=== PATIENT | male | born 1975 | race African-American/Black ===

== ENCOUNTER 2016-09-04 03:58 | Inpatient (IN) | payer OTHER ==
[~2016-09-04] VITALS: Ht 180.3 cm; Wt 89.1 kg
[~2016-09-04 03:58] MED LIST: ALPHAGAN 0100 DROP/5 BOTH EYES; AMLODIPINE BESY10 MG PO; AMLODIPINE BESYL5 MG PO; ASPIR 8181 M1 PO; ASPIRIN81 M1 PO; AUGMENTIN875 MG PO; CARBAMAZEPINE400 MG PO; CLEOCIN300 MG PO; CLINDAMYCIN HC300 MG PO; COSOPT EYE DROPS5 ML BOTH EYES; DOLOPHINE HCL5 MG PO; DOXYCYCLINE HY100 M3 PO; GLUCOPHAGE1000 MG PO; HUMALOG100 UNIT/1 SC; HUMULIN 70100 UNIT/1 SC; HYDROCHLOROTHIA25 MG PO; INDOCIN25 MG PO; KEPPRA XR500 MG PO; KEPPRA500 MG PO; KEPPRA750 MG PO; LANTUS 3 M100 UNITS1 SC; LEVEMIR FL100 UNIT/1 SC; LEVETIRACETAM500 MG PO; LEVETIRACETAM750 MG PO; LEXAPRO20 MG PO; LIPITOR10 MG PO; LIPITOR5 MG PO; LISINOPRIL20 MG PO; LISINOPRIL5 MG PO; LUMIGAN 0.50 DROP/2. OP; LYRICA150 MG PO; LYRICA200 MG PO; LYRICA50 MG PO; Lipitor PO; METFORMIN HCL500 MG PO; METHADONE10 MG PO; NORVASC10 MG PO; NOVOLIN 70100 UNIT/1 SQ; NOVOLIN,HU100 UNITS/ SC; NOVOLOG MI100 UNIT/3 SQ; NOVOLOG MI100 UNIT/4 SC; NOVOLOG PE100 UNITS/ SC; NOVOLOG100 UNIT/2 SQ; OPANA ER10 MG PO; OXYCODONE HCL10 MG PO; PERCOCET 5/31 TABLET PO; POLYTRIM EYE DR10 ML BOTH EYES; ROWEEPRA500 MG PO; TEGRETOL-XR,CA200 MG PO; TEGRETOL-XR,CA400 MG PO; TORADOL10 MG PO; TRAMADOL HCL50 MG PO; VALIUM2 MG PO; VIMPAT100 MG PO; ZESTRIL,PRINIVI10 MG PO; ZESTRIL10 MG PO; ZONEGRAN100 MG PO; ZONISAMIDE100 MG PO
[2016-09-04 04:41] LABS: POINT-OF-CARE METER ID UU14100415
[2016-09-04 05:06] LABS: HEMATOCRIT 35.6 % (38.0-50.0); MCH 29.4 PG (29.0-34.0); MCHC 36.8 G/DL (30.0-36.0); MCV 79.8 FL (86-99); MEAN PLAT.VOLUME 12.1 uM^3 (9.0-12.4); PLATELET COUNT 204 K/uL (156-360); RBC DIS.WIDTH-CV 13.3 % (11.8-14.6); RBC DIS.WIDTH-SD 38.7 % (39-53); RED BLOOD COUNT 4.46 M/uL (4.00-5.50); WHITE BLOOD COUNT 6.1 K/uL (4.1-10.2)
[2016-09-04 05:10] LABS: CHLORIDE 104 mEq/L (99-109); POTASSIUM 4.3 mEq/L (3.7-5.4); SODIUM 137 mEq/L (136-147)
[2016-09-04 05:12] LABS: GLUCOSE 321 mg/dL (70-99)
[2016-09-04 05:13] LABS: ANION GAP 6 MEQ/L (2-14)
[2016-09-04 05:14] LABS: TOTAL BILIRUBIN 0.2 mg/dL (0.0-1.0)
[2016-09-04 05:16] LABS: ALKALINE PHOSPHATASE 104 IU/L (3-129); GFR ESTIMATE (CALCULATED) > 59 mL/min/
[2016-09-04 05:17] LABS: UREA NITROGEN (BUN) 19 mg/dL (9-23)
[2016-09-04 05:19] LABS: CREATINE KINASE 181 IU/L (1-294); LIPASE 56 U/L (1.0-51.0); TOTAL CK 181 IU/L (1-294)
[2016-09-04 05:21] LABS: TROP-I INTERPRETATION NEGATIVE; TROPONIN-I 0.01 ng/mL (0.0-0.30)
[2016-09-04 05:25] LABS: CK-MB 5.3 ng/mL (0.0-4.9)
[2016-09-04] MEDS ORDERED: LISINOPRIL10 MG PO (07:37)
[2016-09-04] MEDS ORDERED: HUMALOG100 UNIT/2 SC (07:39)
[2016-09-04 08:47] LABS: CARBON DIOXIDE (BICARBONATE) 29.2 MEQ/L (20-31)
[2016-09-04 08:49] LABS: ADD MIUA? NO; BILIRUBIN NEGATIVE; BLOOD NEGATIVE; GLUCOSE (STRIP) >=1000; KETONES NEGATIVE; LEUKOCYTES NEGATIVE; NITRITE NEGATIVE; PH, URINE 6.5 (5-8); PROTEIN (STRIP) 30; SPECIFIC GRAVITY 1.029 (1.000-1.030); UCUL ADDED? NO; UROBILINOGEN 0.2 MG/DL (0.2-1.0)
[2016-09-04 08:50] LABS: COLOR LT YELLOW ((YELLOW))
[2016-09-04 11:22] LABS: POINT-OF-CARE METER ID UU14100415
[2016-09-04 15:48] LABS: POINT-OF-CARE METER ID UU14100415; POINT-OF-CARE USER ID AHSDISBJH
[2016-09-04 17:41] VITALS: BP 166/102
[2016-09-04 19:35] VITALS: BP 168/88
[2016-09-04 20:30] LABS: METH RESISTANT S AUREUS PCR NEGATIVE (NEGATIVE)
[2016-09-04 20:37] LABS: PROBE CHECK PASS; SPECIMEN PROCESSING CONTROL PASS
[2016-09-04 20:58] LABS: POINT-OF-CARE METER ID UU13113725
[2016-09-04 22:23] VITALS: BP 147/85
[2016-09-05 02:42] VITALS: BP 128/76
[2016-09-05 07:20] LABS: EOSINOPHIL (%) 4.3 % (0-5); EOSINOPHIL COUNT 0.3 K/uL (0-0.3); HEMATOCRIT 35.3 % (38.0-50.0); IMMATURE GRANULOCYTE (%) 0.1 % (0.0-0.7); LYMPHOCYTE COUNT 2.1 K/uL (1.0-2.8); MCH 28.8 PG (29.0-34.0); MCHC 36.3 G/DL (30.0-36.0); MCV 79.3 FL (86-99); MEAN PLAT.VOLUME 12.2 uM^3 (9.0-12.4); MONOCYTE (%) 7.8 % (3-12); MONOCYTE COUNT 0.6 K/uL (0-0.8); NEUTROPHIL (%) 59.7 % (45-76); NEUTROPHIL COUNT 4.4 K/uL (1.8-6.4); PLATELET COUNT 220 K/uL (156-360); RBC DIS.WIDTH-CV 13.6 % (11.8-14.6); RBC DIS.WIDTH-SD 39.1 % (39-53); RED BLOOD COUNT 4.45 M/uL (4.00-5.50); WHITE BLOOD COUNT 7.4 K/uL (4.1-10.2)
[2016-09-05 07:37] VITALS: BP 136/83
[2016-09-05 07:45] VITALS: BP 136/83
[2016-09-05 07:48] LABS: ANION GAP 7 MEQ/L (2-14); CHLORIDE 104 MEQ/L (99-109); GFR ESTIMATE (CALCULATED) > 59 mL/min/; SAMPLE HEMOLYSIS CHECK 0; SAMPLE ICTERIC CHECK 0; SAMPLE LIPEMIA CHECK 0; SODIUM 140 MEQ/L (136-147); UREA NITROGEN (BUN) 22 mg/dL (9-23)
[2016-09-05 07:49] LABS: GLUCOSE 112 mg/dL (70-99)
[2016-09-05 11:11] VITALS: BP 147/93
[2016-09-05 15:23] VITALS: BP 128/82
[2016-09-05 15:54] LABS: POINT-OF-CARE METER ID UU13113725
[2016-09-05 21:24] VITALS: BP 120/90
[2016-09-06 00:20] VITALS: BP 117/78
[2016-09-06 03:50] VITALS: BP 129/83
[2016-09-06 08:10] VITALS: BP 133/86
[2016-09-06 11:09] LABS: POINT-OF-CARE METER ID UU13113725
[2016-09-06] MEDS ORDERED: AMLODIPINE BESYL5 MG PO (11:20)
[2016-09-06] MEDS ORDERED: METOPROLOL SUC100 MG PO (11:20)
[2016-09-06] MEDS ORDERED: VIMPAT100 MG PO (11:20)
[2016-09-06] MEDS ORDERED: LISINOPRIL10 MG PO (11:20)
[2016-09-06] MEDS ORDERED: ROWEEPRA500 MG PO (11:20)
[2016-09-06] MEDS ORDERED: APRESOLINE50 MG PO (11:20)
[2016-09-06] MEDS ORDERED: HUMALOG100 UNIT/2 SC (11:20)
[2016-09-06] MEDS ORDERED: LANTUS 3 M100 UNITS1 SC ×2 (11:20)
== END 2016-09-06 16:48 | disposition home or self-care (01) | DRG 101 ==
LOC: EME 03:58 → EDOF 10:01 → 5EAST 10:01
PROVIDERS: Emergency Medicine; Family Medicine Sports Medicine
DX: G40.919 Epilepsy, unspecified, intractable, without status epilepticus (principal); E10.65 Type 1 diabetes mellitus with hyperglycemia; E10.43 Type 1 diabetes mellitus with diabetic autonomic (poly)neuropathy; Z91.19 Patient's noncompliance with other medical treatment and regimen; I12.9 Hypertensive chronic kidney disease with stage 1 through stage 4 chronic kidney disease, or unspecified chronic kidney disease; N18.9 Chronic kidney disease, unspecified; E78.5 Hyperlipidemia, unspecified; K21.9 Gastro-esophageal reflux disease without esophagitis; D64.9 Anemia, unspecified; G89.29 Other chronic pain; M54.5 Low back pain; F41.9 Anxiety disorder, unspecified
CPT/HCPCS: 80048; 80053; 81003; 82009; 82550; 82553; 82803; 82948; 83605; 83690; 84484; 85025; 85027; 87081; 87641; 93005; 99281; 99285; J0360; J1650; J1815; J2060; J7030

== ENCOUNTER 2016-09-17 11:21 | Emergency (ER) | payer OTHER ==
[~2016-09-17] VITALS: Ht 180.3 cm; Wt 89.0 kg
[~2016-09-17 11:21] MED LIST changes: +APRESOLINE50 MG PO; +HUMALOG100 UNIT/2 SC; +LISINOPRIL10 MG PO; +METOPROLOL SUC100 MG PO
[2016-09-17 12:36] LABS: HEMATOCRIT 39.5 % (38.0-50.0); MCH 28.5 PG (29.0-34.0); MCHC 36.2 G/DL (30.0-36.0); MCV 78.7 FL (86-99); MEAN PLAT.VOLUME 12.1 uM^3 (9.0-12.4); PLATELET COUNT 220 K/uL (156-360); RBC DIS.WIDTH-CV 13.4 % (11.8-14.6); RBC DIS.WIDTH-SD 37.6 % (39-53); RED BLOOD COUNT 5.02 M/uL (4.00-5.50); WHITE BLOOD COUNT 13.1 K/uL (4.1-10.2)
[2016-09-17 12:45] LABS: CHLORIDE 106 mEq/L (99-109); POTASSIUM 4.4 mEq/L (3.7-5.4); SODIUM 140 mEq/L (136-147)
[2016-09-17 12:47] LABS: GLUCOSE 198 mg/dL (70-99)
[2016-09-17 12:48] LABS: ANION GAP 8 MEQ/L (2-14)
[2016-09-17 12:50] LABS: GFR ESTIMATE (CALCULATED) > 59 mL/min/
[2016-09-17 12:51] LABS: UREA NITROGEN (BUN) 23 mg/dL (9-23)
[2016-09-17 12:56] LABS: TROP-I INTERPRETATION NEGATIVE; TROPONIN-I 0.01 ng/mL (0.0-0.30)
[2016-09-17 15:24] LABS: TROP-I INTERPRETATION NEGATIVE; TROPONIN-I < 0.01 ng/mL (0.0-0.30)
[2016-09-17] MEDS ORDERED: FLONASE16 G1 BOTH NARES (16:11)
[2016-09-17] MEDS ORDERED: ZYRTEC10 M2 PO (16:11)
[2016-09-17] MEDS ORDERED: FLEXERIL10 MG PO (16:11)
[2016-09-17] MEDS ORDERED: PATANOL OP100 DROP/5 BOTH EYES (16:11)
[2016-09-17 16:33] VITALS: BP 138/88
== END 2016-09-17 16:35 | disposition home or self-care (01) ==
LOC: EME 11:21
PROVIDERS: Nurse Practitioner Family
DX: R07.9 Chest pain, unspecified (principal); S29.011A Strain of muscle and tendon of front wall of thorax, initial encounter; H10.13 Acute atopic conjunctivitis, bilateral; E11.65 Type 2 diabetes mellitus with hyperglycemia; I10 Essential (primary) hypertension
CPT/HCPCS: 71020; 80048; 84484; 85027; 93005; 99281; 99284

== ENCOUNTER 2017-02-03 07:41 | Emergency (ER) | payer OTHER ==
[~2017-02-03] VITALS: Ht 180.3 cm; Wt 90.0 kg
[~2017-02-03 07:41] MED LIST changes: +FLEXERIL10 MG PO; +FLONASE16 G1 BOTH NARES; +PATANOL OP100 DROP/5 BOTH EYES; +ZYRTEC10 M2 PO
[2017-02-03 08:24] LABS: HEMATOCRIT 37.1 % (38.0-50.0); MCHC 36.1 G/DL (30.0-36.0); MCV 77.6 FL (86-99); RBC DIS.WIDTH-CV 12.9 % (11.8-14.6); RBC DIS.WIDTH-SD 36.7 % (39-53); RED BLOOD COUNT 4.78 M/uL (4.00-5.50); WHITE BLOOD COUNT 8.9 K/uL (4.1-10.2)
[2017-02-03 08:32] LABS: MEAN PLAT.VOLUME 11.8 uM^3 (9.0-12.4); PLATELET COUNT 196 K/uL (156-360)
[2017-02-03 08:50] LABS: CHLORIDE 104 mEq/L (99-109); SODIUM 137 mEq/L (136-147)
[2017-02-03 08:52] LABS: GLUCOSE 270 mg/dL (70-99)
[2017-02-03 08:53] LABS: ANION GAP 7 MEQ/L (2-14)
[2017-02-03 08:56] LABS: GFR ESTIMATE (CALCULATED) > 59 mL/min/
[2017-02-03 08:57] LABS: UREA NITROGEN (BUN) 24 mg/dL (9-23)
[2017-02-03] MEDS ORDERED: VIMPAT100 MG PO (09:48)
[2017-02-03] MEDS ORDERED: NORVASC5 MG PO (09:48)
[2017-02-03] MEDS ORDERED: HUMALOG100 UNIT/2 SC (09:48)
[2017-02-03] MEDS ORDERED: APRESOLINE25 MG PO (09:48)
[2017-02-03] MEDS ORDERED: LYRICA150 MG PO (09:48)
[2017-02-03] MEDS ORDERED: LANTUS 3 M100 UNITS1 SC ×2 (09:48)
[2017-02-03] MEDS ORDERED: ROWEEPRA500 MG PO (09:48)
[2017-02-03] MEDS ORDERED: GLUCOPHAGE1000 MG PO (09:48)
[2017-02-03] MEDS ORDERED: METOPROLOL SUC100 MG PO (09:48)
[2017-02-03] MEDS ORDERED: LISINOPRIL10 MG PO (09:48)
[2017-02-03 10:00] VITALS: BP 170/98
== END 2017-02-03 10:33 | disposition home or self-care (01) ==
LOC: EME 07:41
PROVIDERS: Emergency Medicine
DX: G40.909 Epilepsy, unspecified, not intractable, without status epilepticus (principal); I10 Essential (primary) hypertension; T42.6X6A Underdosing of other antiepileptic and sedative-hypnotic drugs, initial encounter; T46.5X6A Underdosing of other antihypertensive drugs, initial encounter; Z91.128 Patient's intentional underdosing of medication regimen for other reason; E11.9 Type 2 diabetes mellitus without complications; Z79.4 Long term (current) use of insulin
CPT/HCPCS: 80048; 85027; 93005; 99281; 99284; J7030

== ENCOUNTER 2017-04-19 11:14 | Emergency (ER) | payer OTHER ==
[~2017-04-19] VITALS: Ht 180.3 cm; Wt 88.5 kg
[~2017-04-19 11:14] MED LIST changes: +APRESOLINE25 MG PO; +NORVASC5 MG PO
[2017-04-19 13:45] VITALS: BP 200/127
== END 2017-04-19 15:22 | disposition home or self-care (01) ==
LOC: EME 11:14
DX: G40.909 Epilepsy, unspecified, not intractable, without status epilepticus (principal); I10 Essential (primary) hypertension; E11.9 Type 2 diabetes mellitus without complications
CPT/HCPCS: 99281; 99284; J1953; J7030; J7050

== ENCOUNTER 2017-07-05 10:01 | Emergency (ER) | payer OTHER ==
[~2017-07-05] VITALS: Ht 182.9 cm; Wt 92.3 kg
[2017-07-05 10:53] LABS: POINT-OF-CARE METER ID UU13113702
[2017-07-05 11:51] LABS: HEMATOCRIT 38.4 % (38.0-50.0); MCH 29.1 PG (29.0-34.0); MCHC 35.4 G/DL (30.0-36.0); MCV 82.2 FL (86-99); RBC DIS.WIDTH-CV 13.2 % (11.8-14.6); RBC DIS.WIDTH-SD 39.6 % (39-53); RED BLOOD COUNT 4.67 M/uL (4.00-5.50); WHITE BLOOD COUNT 9.4 K/uL (4.1-10.2)
[2017-07-05 11:59] LABS: CHLORIDE 105 mEq/L (99-109); POTASSIUM 4.4 mEq/L (3.7-5.4); SODIUM 140 mEq/L (136-147)
[2017-07-05 12:02] LABS: ANION GAP 15 MEQ/L (2-14); GLUCOSE 303 mg/dL (70-99)
[2017-07-05 12:03] LABS: TOTAL BILIRUBIN 0.3 mg/dL (0.0-1.0)
[2017-07-05 12:04] LABS: SERUM ETHYL ALCOHOL < 10 mg/dL
[2017-07-05 12:05] LABS: ALKALINE PHOSPHATASE 117 IU/L (3-129); GFR ESTIMATE (CALCULATED) > 59 mL/min/ (58.99-99999)
[2017-07-05 12:06] LABS: UREA NITROGEN (BUN) 14 mg/dL (9-23)
[2017-07-05 12:19] LABS: MEAN PLAT.VOLUME 12.7 uM^3 (9.0-12.4); PLATELET COUNT 259 K/uL (156-360)
[2017-07-05 15:07] LABS: POINT-OF-CARE METER ID UU13113747
[2017-07-05 17:21] VITALS: BP 165/99
== END 2017-07-05 18:29 | disposition home or self-care (01) ==
LOC: EME 10:01
PROVIDERS: Emergency Medicine
DX: G40.909 Epilepsy, unspecified, not intractable, without status epilepticus (principal); Z91.14 Patient's other noncompliance with medication regimen; I10 Essential (primary) hypertension; E11.65 Type 2 diabetes mellitus with hyperglycemia; Z79.4 Long term (current) use of insulin; R09.02 Hypoxemia
CPT/HCPCS: 70450; 80053; 82800; 82948; 83605; 83930; 85027; 99281; 99285; G0480; J1953; J7030; J7050

== ENCOUNTER 2017-08-21 09:19 | Emergency (ER) | payer OTHER ==
[~2017-08-21] VITALS: Ht 180.3 cm; Wt 92.3 kg
[2017-08-21 10:08] LABS: BASOPHIL (%) 0.2 % (0-1); EOSINOPHIL (%) 1.7 % (0-5); EOSINOPHIL COUNT 0.1 K/uL (0-0.3); HEMATOCRIT 36.6 % (38.0-50.0); HEMOGLOBIN 13.1 G/DL (12.5-16.6); IMMATURE GRANULOCYTE (%) 0.4 % (0.0-0.7); LYMPHOCYTE (%) 15.4 % (15-42); LYMPHOCYTE COUNT 1.3 K/uL (1.0-2.8); MCH 28.9 PG (29.0-34.0); MCHC 35.8 G/DL (30.0-36.0); MCV 80.6 FL (86-99); MONOCYTE (%) 6.7 % (3-12); MONOCYTE COUNT 0.6 K/uL (0-0.8); NEUTROPHIL (%) 75.6 % (45-76); NEUTROPHIL COUNT 6.2 K/uL (1.8-6.4); PLATELET COUNT 280 K/uL (156-360); RBC DIS.WIDTH-CV 13.1 % (11.8-14.6); RBC DIS.WIDTH-SD 38.4 % (39-53); RED BLOOD COUNT 4.54 M/uL (4.00-5.50); WHITE BLOOD COUNT 8.2 K/uL (4.1-10.2)
[2017-08-21 10:16] LABS: ALBUMIN 3.5 g/dL (3.2-4.8)
[2017-08-21 10:17] LABS: CHLORIDE 106 mEq/L (99-109); POTASSIUM 3.7 mEq/L (3.7-5.4); SODIUM 142 mEq/L (136-147)
[2017-08-21 10:19] LABS: GLUCOSE 95 mg/dL (70-99)
[2017-08-21 10:21] LABS: TOTAL BILIRUBIN 0.2 mg/dL (0.0-1.0)
[2017-08-21 10:22] LABS: ALKALINE PHOSPHATASE 89 IU/L (3-129)
[2017-08-21 10:23] LABS: CREATININE 1.4 mg/dL (0.6-1.3); GFR ESTIMATE (CALCULATED) > 59 mL/min/ (58.99-99999)
[2017-08-21 10:24] LABS: AST (GOT) 22 IU/L (2-34); UREA NITROGEN (BUN) 22 mg/dL (9-23)
[2017-08-21 10:26] LABS: ALT (GPT) 20 IU/L (3-49)
[2017-08-21 14:51] VITALS: BP 198/129
== END 2017-08-21 14:58 | disposition home or self-care (01) ==
LOC: EME 09:19
PROVIDERS: Emergency Medicine
DX: E11.649 Type 2 diabetes mellitus with hypoglycemia without coma (principal); I10 Essential (primary) hypertension; Z79.4 Long term (current) use of insulin; Z79.891 Long term (current) use of opiate analgesic
CPT/HCPCS: 80053; 82948; 85025

== ENCOUNTER 2017-09-11 23:47 | Emergency (ER) | payer OTHER ==
[~2017-09-11] VITALS: Ht 180.3 cm; Wt 88.4 kg
[2017-09-12 00:44] LABS: HEMATOCRIT 36.4 % (38.0-50.0); HEMOGLOBIN 13.2 G/DL (12.5-16.6); MCH 28.8 PG (29.0-34.0); MCHC 36.3 G/DL (30.0-36.0); MCV 79.5 FL (86-99); PLATELET COUNT 235 K/uL (156-360); RBC DIS.WIDTH-CV 13.5 % (11.8-14.6); RBC DIS.WIDTH-SD 38.6 % (39-53); RED BLOOD COUNT 4.58 M/uL (4.00-5.50); WHITE BLOOD COUNT 9.4 K/uL (4.1-10.2)
[2017-09-12 00:52] LABS: ALBUMIN 3.7 g/dL (3.2-4.8); CHLORIDE 107 mEq/L (99-109); SODIUM 141 mEq/L (136-147)
[2017-09-12 00:54] LABS: TOTAL PROTEIN 6.8 g/dL (6.4-8.3)
[2017-09-12 00:56] LABS: TOTAL BILIRUBIN 0.4 mg/dL (0.0-1.0)
[2017-09-12 00:58] LABS: ALKALINE PHOSPHATASE 76 IU/L (3-129)
[2017-09-12 00:59] LABS: UREA NITROGEN (BUN) 27 mg/dL (9-23)
[2017-09-12 01:00] LABS: AST (GOT) 20 IU/L (2-34)
[2017-09-12 01:01] LABS: ALT (GPT) 15 IU/L (3-49)
[2017-09-12 01:05] LABS: CREATININE 2.2 mg/dL (0.6-1.3); GFR ESTIMATE (CALCULATED) 42 mL/min/ (58.99-99999); GLUCOSE 122 mg/dL (70-99)
[2017-09-12 02:55] VITALS: BP 173/113
[2017-09-12] MEDS ORDERED: TOPROL XL100 MG PO (23:24)
[2017-09-12] MEDS ORDERED: NORVASC5 MG PO (23:24)
[2017-09-12] MEDS ORDERED: PRINIVIL10 MG PO (23:24)
[2017-09-12] MEDS ORDERED: KEPPRA500 MG PO (23:25)
[2017-09-12] MEDS ORDERED: LYRICA200 MG PO (23:27)
[2017-09-12] MEDS ORDERED: LYRICA100 MG PO (23:27)
== END 2017-09-12 02:56 | disposition home or self-care (01) ==
LOC: EME 23:47
PROVIDERS: Emergency Medicine Emergency Medical Services
DX: R56.9 Unspecified convulsions (principal); R51 Headache; R11.0 Nausea; N19 Unspecified kidney failure; I10 Essential (primary) hypertension; E11.9 Type 2 diabetes mellitus without complications; Z79.4 Long term (current) use of insulin
CPT/HCPCS: 80053; 85027; 93005; 99281; 99285; J2060

== ENCOUNTER 2017-09-12 17:39 | Inpatient (IN) | payer OTHER ==
[~2017-09-12] VITALS: Ht 180.3 cm; Wt 89.6 kg
[2017-09-12 19:08] LABS: HEMATOCRIT 38.5 % (38.0-50.0); HEMOGLOBIN 13.8 G/DL (12.5-16.6); MCH 28.8 PG (29.0-34.0); MCHC 35.8 G/DL (30.0-36.0); MCV 80.4 FL (86-99); PLATELET COUNT 237 K/uL (156-360); RBC DIS.WIDTH-CV 13.6 % (11.8-14.6); RBC DIS.WIDTH-SD 39.9 % (39-53); RED BLOOD COUNT 4.79 M/uL (4.00-5.50); WHITE BLOOD COUNT 8.5 K/uL (4.1-10.2)
[2017-09-12 19:18] LABS: ALBUMIN 3.8 g/dL (3.2-4.8); CHLORIDE 106 mEq/L (99-109); SODIUM 138 mEq/L (136-147)
[2017-09-12 19:21] LABS: GLUCOSE 188 mg/dL (70-99); TOTAL PROTEIN 7.3 g/dL (6.4-8.3)
[2017-09-12 19:23] LABS: SERUM ETHYL ALCOHOL < 10 mg/dL
[2017-09-12 19:24] LABS: ALKALINE PHOSPHATASE 79 IU/L (3-129); CREATININE 2.3 mg/dL (0.6-1.3); GFR ESTIMATE (CALCULATED) 40 mL/min/ (58.99-99999)
[2017-09-12 19:25] LABS: TOTAL BILIRUBIN 0.7 mg/dL (0.0-1.0); UREA NITROGEN (BUN) 29 mg/dL (9-23)
[2017-09-12 19:26] LABS: AST (GOT) 28 IU/L (2-34)
[2017-09-12 19:27] LABS: ALT (GPT) 13 IU/L (3-49)
[2017-09-12 23:08] LABS: BASE EXCESS -0.5 mEq/L (-3 to +3); BICARBONATE 24.9 mEq/L (22-26); COMMENTS - BLOOD GASES C+A+; DEVICE NC; METHEMOGLOBIN 0.7 % (0-1.5); O2 FLOW 2 L/MIN; PCO2 43 mm Hg (35-45); PO2 150 mm Hg (80-100); SITE LR; TOTAL RESP RATE 16 resp/min; pH 7.37 (7.35-7.45)
[2017-09-12 23:23] LABS: CREATINE KINASE 603 IU/L (1-294)
[2017-09-12] MEDS ORDERED: PRINIVIL10 MG PO (23:24)
[2017-09-12] MEDS ORDERED: TOPROL XL100 MG PO (23:24)
[2017-09-12] MEDS ORDERED: NORVASC5 MG PO (23:24)
[2017-09-12] MEDS ORDERED: KEPPRA500 MG PO (23:25)
[2017-09-12] MEDS ORDERED: LYRICA100 MG PO (23:27)
[2017-09-12] MEDS ORDERED: LYRICA200 MG PO (23:27)
[2017-09-12 23:53] LABS: APPEARANCE CLEAR ((CLEAR)); BILIRUBIN NEGATIVE; BLOOD NEGATIVE; COLOR YELLOW ((YELLOW)); GLUCOSE (STRIP) 50; KETONES 5; LEUKOCYTES NEGATIVE; NITRITE NEGATIVE; PROTEIN (STRIP) 100; UROBILINOGEN 0.2 MG/DL (0.2-1.0)
[2017-09-13] VITALS (7 sets, daily range): BP systolic 112–182; BP diastolic 62–119
[2017-09-13 00:01] LABS: BACTERIA NONE SEEN /HPF; EPITHELIAL CELLS NONE SEEN /HPF; RED BLOOD CELLS 0-5 /HPF (0-5); WHITE BLOOD CELLS NONE SEEN /HPF (0-5)
[2017-09-13 00:02] LABS: MUCUS TRACE /LPF
[2017-09-13 00:03] LABS: AMPHETAMINE NEGATIVE (500 ng/mL); BARBITURATES NEGATIVE (200 ng/mL); BENZODIAZEPINES PRESUMPTIVE POSITIVE (150 ng/mL); BUPRENORPHINE NEGATIVE (10 ng/mL); COCAINE NEGATIVE (150 ng/mL); METHADONE NEGATIVE (200 ng/mL); METHAMPHETAMINE NEGATIVE (500 ng/mL); OPIATES (MORPHINE) NEGATIVE (100 ng/mL); OXYCODONE NEGATIVE (100 ng/mL); PHENCYCLIDINE NEGATIVE (25 ng/mL); PROPOXYPHENE NEGATIVE (300 ng/mL); THC CANNABINOIDS NEGATIVE (50 ng/mL); TRICYCLIC ANTIDEPRESSANTS NEGATIVE (300 ng/mL)
[2017-09-13 01:44] LABS: BENZODIAZEPINES, URINE SCREEN Negative (200 ng/mL)
[2017-09-13 09:37] LABS: HEMATOCRIT 35.1 % (38.0-50.0); HEMOGLOBIN 12.6 G/DL (12.5-16.6); MCH 28.1 PG (29.0-34.0); MCHC 35.9 G/DL (30.0-36.0); MCV 78.2 FL (86-99); PLATELET COUNT 228 K/uL (156-360); RBC DIS.WIDTH-CV 13.7 % (11.8-14.6); RED BLOOD COUNT 4.49 M/uL (4.00-5.50); WHITE BLOOD COUNT 7.9 K/uL (4.1-10.2)
[2017-09-13 10:06] LABS: CHLORIDE 105 MEQ/L (99-109); GLUCOSE 145 mg/dL (70-99); SODIUM 139 MEQ/L (136-147); UREA NITROGEN (BUN) 22 mg/dL (9-23)
[2017-09-13 10:09] LABS: CREATININE 1.2 MG/DL (0.6-1.3); GFR ESTIMATE (CALCULATED) > 59 mL/min/ (58.99-99999)
[2017-09-14 03:47] VITALS: BP 128/81
[2017-09-14 05:49] LABS: HEMATOCRIT 34.8 % (38.0-50.0); HEMOGLOBIN 12.2 G/DL (12.5-16.6); MCH 28.2 PG (29.0-34.0); MCHC 35.1 G/DL (30.0-36.0); MCV 80.4 FL (86-99); PLATELET COUNT 239 K/uL (156-360); RBC DIS.WIDTH-CV 13.8 % (11.8-14.6); RBC DIS.WIDTH-SD 40.3 % (39-53); RED BLOOD COUNT 4.33 M/uL (4.00-5.50); WHITE BLOOD COUNT 6.8 K/uL (4.1-10.2)
[2017-09-14 06:20] LABS: ALBUMIN 3.3 G/DL (3.2-4.8); CHLORIDE 103 MEQ/L (99-109); SODIUM 138 MEQ/L (136-147); TOTAL BILIRUBIN 0.4 MG/DL (0.0-1.0)
[2017-09-14 06:26] LABS: ALKALINE PHOSPHATASE 63 IU/L (3-129); ALT (GPT) 10 IU/L (3-49); AST (GOT) 26 IU/L (2-34); CREATININE 1.3 MG/DL (0.6-1.3); GFR ESTIMATE (CALCULATED) > 59 mL/min/ (58.99-99999); TOTAL PROTEIN 6.3 G/DL (6.4-8.3); UREA NITROGEN (BUN) 18 mg/dL (9-23)
[2017-09-14 06:27] LABS: GLUCOSE 84 mg/dL (70-99)
[2017-09-14 06:47] VITALS: BP 134/91
[2017-09-14 11:29] VITALS: BP 125/85
== END 2017-09-14 13:22 | disposition home or self-care (01) | DRG 683 ==
LOC: EME 17:39 → 5EAST 23:32 → EDOF 23:32 → ENRESERV 23:34 → 5EAST 09-13 01:07 → ENPENDDIS 09-14 → 5EAST 09-14 13:22
PROVIDERS: Emergency Medicine; Family Medicine Sports Medicine
DX: N17.9 Acute kidney failure, unspecified (principal); E87.2 Acidosis; G40.919 Epilepsy, unspecified, intractable, without status epilepticus; E78.5 Hyperlipidemia, unspecified; E86.0 Dehydration; I12.9 Hypertensive chronic kidney disease with stage 1 through stage 4 chronic kidney disease, or unspecified chronic kidney disease; K21.9 Gastro-esophageal reflux disease without esophagitis; N18.9 Chronic kidney disease, unspecified; F41.9 Anxiety disorder, unspecified; D64.9 Anemia, unspecified; E10.22 Type 1 diabetes mellitus with diabetic chronic kidney disease; E10.65 Type 1 diabetes mellitus with hyperglycemia; R32 Unspecified urinary incontinence; E10.42 Type 1 diabetes mellitus with diabetic polyneuropathy; Z79.4 Long term (current) use of insulin; Z91.19 Patient's noncompliance with other medical treatment and regimen; Z91.14 Patient's other noncompliance with medication regimen; Z82.49 Family history of ischemic heart disease and other diseases of the circulatory system
CPT/HCPCS: 36415; 36600; 70450; 71045; 80048; 80053; 81003; 82550; 82803; 82948; 83036; 84403; 84999; 85027; 93005; 94799; 99281; 99285; A6260; G0480; J0360; J1630; J1644; J1815; J1953; J2060; J7030; J7050

== ENCOUNTER 2018-02-27 10:39 | Emergency (ER) | payer OTHER ==
[~2018-02-27] VITALS: Ht 180.3 cm; Wt 90.9 kg
[~2018-02-27 10:39] MED LIST changes: +LYRICA100 MG PO; +PRINIVIL10 MG PO; +TOPROL XL100 MG PO
[2018-02-27 11:12] LABS: BASOPHIL (%) 0.5 % (0-1); EOSINOPHIL (%) 3.4 % (0-5); EOSINOPHIL COUNT 0.3 K/uL (0-0.3); HEMATOCRIT 35.6 % (38.0-50.0); HEMOGLOBIN 12.9 G/DL (12.5-16.6); IMMATURE GRANULOCYTE (%) 0.9 % (0.0-0.7); LYMPHOCYTE (%) 13.6 % (15-42); MCH 28.6 PG (29.0-34.0); MCHC 36.2 G/DL (30.0-36.0); MCV 78.9 FL (86-99); MONOCYTE (%) 7.3 % (3-12); MONOCYTE COUNT 0.6 K/uL (0-0.8); NEUTROPHIL (%) 74.3 % (45-76); NEUTROPHIL COUNT 5.7 K/uL (1.8-6.4); PLATELET COUNT 192 K/uL (156-360); RBC DIS.WIDTH-CV 13.2 % (11.8-14.6); RBC DIS.WIDTH-SD 37.7 % (39-53); RED BLOOD COUNT 4.51 M/uL (4.00-5.50); WHITE BLOOD COUNT 7.7 K/uL (4.1-10.2)
[2018-02-27 11:15] VITALS: BP 174/116
[2018-02-27 11:27] LABS: CHLORIDE 103 mEq/L (99-109); POTASSIUM 5.4 mEq/L (3.7-5.4); SODIUM 138 mEq/L (136-147)
[2018-02-27 11:28] LABS: GLUCOSE 374 mg/dL (70-99)
[2018-02-27 11:32] LABS: CREATININE 1.7 mg/dL (0.6-1.3); GFR ESTIMATE (CALCULATED) 57 mL/min/ (58.99-99999)
[2018-02-27 11:33] LABS: UREA NITROGEN (BUN) 23 mg/dL (9-23)
== END 2018-02-27 12:48 | disposition home or self-care (01) ==
LOC: EME 10:39
PROVIDERS: Emergency Medicine
DX: G40.909 Epilepsy, unspecified, not intractable, without status epilepticus (principal); E11.9 Type 2 diabetes mellitus without complications; I10 Essential (primary) hypertension; Z79.4 Long term (current) use of insulin
CPT/HCPCS: 80048; 85025; 93005; J7030